=== PATIENT | male | born 1965 | race Caucasian/White ===

== ENCOUNTER 2021-01-14 08:12 | Observation (INO) | payer OTHER ==
[~2021-01-14] VITALS: Ht 175.3 cm; Wt 97.8 kg
--- NOTE | 2021-01-14 08:20 | NUR ---
PT AMBULATED TO ROOM WITH STEADY GAIT, ACCOMPANIED BY VISITOR.
[2021-01-14 09:13] LABS: HEMATOCRIT 42.7 % (39.0-50.0); HEMOGLOBIN 14.5 g/dl (14.0-18.0); IMMATURE GRANULOCYTES 0.4 % (0.0-5.0); MEAN CELL VOLUME 84.1 fL CALC (80.0-100.0); MEAN CORPUSCULAR HGB 28.5 pG CALC (26.0-32.0); NEUT# 13.01 thou/uL (1.82-7.42); RED BLOOD COUNT 5.08 mill/uL (4.70-6.10); RED CELL DISTRI WIDTH 15.1 % (11.5-15.5)
--- NOTE | 2021-01-14 09:20 | NUR ---
FRIEND AT BEDSIDE BROUGHT IN PATIENTS MEDICATIONS. MEDS RECONCILED AND ENTERED.
[2021-01-14 09:32] LABS: ACT PARTIAL THROMBO TIME 26.3 SECONDS (20.0-32.5); ALBUMIN 4.2 g/dL (3.2-5.0); ALKALINE PHOSPHATASE 84 u/l (38-126); ANION GAP 15 (6-22 (CALC)); BILIRUBIN, TOTAL 1.6 mg/dL (0.0-1.4); BUN 17 mg/dL (9-20); BUN/CREATININE RATIO 17 (12-20 (CALC)); CARBON DIOXIDE 26 mmol/l (22-30); CHLORIDE 95 mmol/l (95-108); GFR > 60 ML/MIN (>=60 (CALC)); GFR FOR AFR.AMER. > 60 ML/MIN (>=60 (CALC)); INTERNATIONAL NORMALIZED RATIO 1.1 RATIO (0.7-1.3); LIPASE 36 u/l (23-300); POTASSIUM 3.9 mmol/l (3.5-5.1); PROTHROMBIN TIME 10.8 SECONDS (9.0-12.5); SGOT/AST 23 u/l (17-59); SODIUM 132 mmol/l (137-146); TOTAL PROTEIN 8.3 g/dL (6.3-8.2)
--- NOTE | 2021-01-14 10:00 | NUR ---
PATEINT HAS BEEN ADVISED NOT TO TAKE METFORMIN FOR 2 DAYS DUE TO CONTRAST DYE. PATIENT VERBALIZES UNDERSTANDING.
[2021-01-14] MEDS ORDERED: HYDROCHLOROTHIA50 MG PO (10:28)
[2021-01-14] MEDS ORDERED: PLAVIX75 MG PO (10:28)
[2021-01-14] MEDS ORDERED: LISINOPRIL20 MG PO (10:29)
[2021-01-14] MEDS ORDERED: AMLODIPINE BESY10 MG PO (10:29)
[2021-01-14] MEDS ORDERED: METFORMIN500 M2 PO (10:30)
[2021-01-14] MEDS ORDERED: GABAPENTIN100 MG PO (10:30)
[2021-01-14] MEDS ORDERED: K-TAB20 MEQ PO (10:32)
[2021-01-14] MEDS ORDERED: LIPITOR20 M1 PO (10:36)
[2021-01-14] MEDS ORDERED: BAYER ASPIRIN E81 MG PO (10:37)
--- NOTE | 2021-01-14 11:26 | NUR ---
PATIENT RESTING, VANCO INFUSING WITHOUT DIFFICULTY. CONTINUING TO MONITOR.
[2021-01-14 12:03] LABS: URINE BILIRUBIN - DIPSTICK NEGATIVE (NEGATIVE); URINE BLOOD DIPSTICK MODERATE (NEGATIVE); URINE COLOR YELLOW; URINE GLUCOSE - DIPSTICK NEGATIVE (NEGATIVE); URINE KETONE NEGATIVE (NEGATIVE); URINE LEUK ESTERASE NEGATIVE (NEGATIVE); URINE PROTEIN - DIPSTICK NEGATIVE (NEG-TRACE); URINE SPECIFIC GRAVITY <=1.005; URINE UROBILINOGEN - DIPSTICK >=8.0 E.U./dL (0.2)
[2021-01-14 12:04] LABS: URINE NITRITE - DIPSTICK NEGATIVE (Negative)
--- NOTE | 2021-01-14 13:30 | NUR ---
PATIENT PROVIDED LUNCH TRAY. TOLERATED ALL.
--- NOTE | 2021-01-14 13:47 | NUR ---
REPORT RECEIVED FROM RAYMOND SALAZAR
--- NOTE | 2021-01-14 13:47 | NUR ---
REPORT CALLED TO BYRON AT THIS TIME. ALL QUESTIONS ANSWERED.
[2021-01-14 14:02] VITALS: BP 161/74
--- NOTE | 2021-01-14 14:03 | NUR ---
PT ARRIVED TO MED/SURG ROOM 263 IN STABLE CONDITION VIA WHEELCHAIR ACCOMPANIED BY RAYMOND SALAZAR;PT AMBULATED TO BEDSIDE WITH A STEADY GAIT;WT AND VS OBTAINED BY TATY SILVA;PT A&O X3, ORIENTED TO ROOM AND CALL LIGHT SYSTEM;PT REPORTS SUPERPUBIC ABSCESS X4 DAYS;PT REPORTS PAIN TO SITE RATING 8/10 ON THE PAIN SCALE, MD TO BE NOTIFIED OF PAIN;RESPIRATIONS EVEN AND UNLABORED ON RA,CLEAR LUNG SOUNDS;ABDOMEN SOFT ON PALPATION AND ACTIVE IN ALL 4 QUADRANTS,LAST BM 01/14/21;ABSCESS TO SUPERPUBIC REGION RED WITH DARK BLACK CENTER, WASTEWATER MANAGER AND PHOTO PLACED IN CHART;STRONG PEDAL PULSES;#20G TO RAC FLUSHED AND PATENT,SITE APPEARS HEALTHY AND NS TO BE STARTED @75ML/HR PER ORDER;ACCUCHECK 136;FALL AND ALLERGY BAND APPLIED;PT DENIES ANY ADDITIONAL NEEDS AND IS ENCOURAGED TO CALL FOR ASSISTANCE IF NEEDED;FALL PRECAUTIONS IN PLACE WITH BED IN THE LOWEST POSITION AND CALL LIGHT IN REACH;WILL CONTINUE TO MONITOR
--- NOTE | 2021-01-14 14:45 | NUR ---
NOTIFIED OF PT REPORTS OF PAIN, AWAITING NEW ORDERS.
[2021-01-14 14:50] VITALS: BP 131/70
--- NOTE | 2021-01-14 14:55 | NUR ---
S: FARRUKH LORENZO is a 55 M who presents with Abdominal cellulitis. He has a history of abdominal cellulitis. All medications in patient's chart were reviewed. O: VS:T 99.7 W 104kg, Scr=1.0,CrCl= 96ml/min> A: Blood culture <is pending P: Patient is on zosyn 3.375g q6h. Vancomycin ordered for pharmacy to dose. Start Vancomycin 1250mg IV Q8H. Vancomycin trough is drawn before the 4th dose on 01/15/21 @0930. Vancomycin goal trough is between <10-20 mcg/ml>. Pharmacy will follow and or advise on antibiotics use as needed. WINIFRED BOURGEOIS PHARMD
--- NOTE | 2021-01-14 15:45 | NUR ---
PT RESTING IN SEMI FOWLERS POSITION WATCHING TV;RESPIRATIONS EVEN AND UNLABORED ON RA;IV FLUIDS STARTED AND INFUSING @ 75ML/HR PER ORDER;PT DENIES ANY ADDITIONAL NEEDS;ENCOURAGED TO CALL FOR ASSISTANCE IF NEEDED;CALL LIGHT IN REACH;WILL CONTINUE TO MONITOR
--- NOTE | 2021-01-14 17:44 | NUR ---
WARM COMPRESSES APPLIED TO ABSCESS;PT ALSO MEDICATED WITH PRN TORADOL FOR LOWER BACK PAIN AT THIS TIME,WILL CONTINUE TO MONITOR FOR EFFECTIVENESS.
--- NOTE | 2021-01-14 19:00 | NUR ---
REPORT RECEIVED FROM Trisha MCDONOUGH LPN, CARE OF PT ASSUMED AT THIS TIME.
[2021-01-14 20:00] VITALS: BP 110/69
--- NOTE | 2021-01-14 20:49 | NUR ---
PHYSICAL ASSESMENT COMPLETE, SEE SHIFT ASSESMENT. PUBIC MOUND INDURATED, EDEMATOUS AND ERYTHEMATOUS. SEE PHOTO DOCUMENTATION IN CHART. NO ACTIVE DRAINAGE OBSERVED FROM AREA. SEROUSANGUINOUS DRAINAGE NOTED TO SHEET AND GOWN. ABD PAD PLACED OVER AREA TO WICK ANY DRAIANGE. PARTIAL LINENE CHANGE COMPLETED. SCHEDULED MEDICATIONS ADMINISTERED AND PRN SONATA ADMINISTERED REQUESTED BY PT FOR SLEEP. SEE E-MAR. R-AC #20G PATENT AND INFUSING NS @75ML/H. PLAN OF CARE REVIEWED, PT VERBALIZES UNDERSTANDING. PT DENIES ANY NEEDS AT THIS TIME. CALL PICKARD WITHIN REACH. AGREES TO CALL PRN.
--- NOTE | 2021-01-15 00:50 | NUR ---
PT APPEARS TO BE SLEEPING COMFORTABLY. LAYING IN BED WITH EYES CLOSED, GENTLY SNORING, RESPIRATIONS REGULAR AND UNLABORED. NO APPARENT DISTRESS. CALL PICKARD REMAINS WITHIN REACH.
[2021-01-15 04:00] VITALS: BP 120/73
--- NOTE | 2021-01-15 04:20 | NUR ---
Aris BENOIT, DIRECTOR COUNSELING BUREAU IN ROOM COLLECTING AM LAB WORK.
[2021-01-15 05:51] LABS: HEMATOCRIT 37.6 % (39.0-50.0); HEMOGLOBIN 12.6 g/dl (14.0-18.0); MEAN CELL VOLUME 85.8 fL CALC (80.0-100.0); MEAN CORPUSCULAR HGB 28.8 pG CALC (26.0-32.0); MEAN CORPUSCULAR HGB CONC 33.5 g/dL CAL (32.0-36.0); RED BLOOD COUNT 4.38 mill/uL (4.70-6.10); RED CELL DISTRI WIDTH 15.1 % (11.5-15.5)
[2021-01-15 05:58] LABS: ANION GAP 13 (6-22 (CALC)); BUN 18 mg/dL (9-20); BUN/CREATININE RATIO 19 (12-20 (CALC)); CARBON DIOXIDE 27 mmol/l (22-30); CHLORIDE 99 mmol/l (95-108); GFR > 60 ML/MIN (>=60 (CALC)); GFR FOR AFR.AMER. > 60 ML/MIN (>=60 (CALC)); MAGNESIUM 1.9 mg/dL (1.6-2.3); POTASSIUM 4.1 mmol/l (3.5-5.1); SODIUM 135 mmol/l (137-146)
--- NOTE | 2021-01-15 07:05 | NUR ---
REPORT RECEIVED FROM RAYMOND TAN
--- NOTE | 2021-01-15 08:25 | NUR ---
PT RESTING IN SEMI FOWLERS POSITION,A&O X3;VS OBTAINED AND ASSESSMENT COMPLETED;PT REPORTS LOWER BACK PAIN RATING 8/10 ON THE PAIN SCALE,PT TO BE MEDICATED WITH PRN TORADOL 15MG IVP;RESPIRATIONS EVEN AND UNLABORED ON RA,CLEAR LUNG SOUNDS;ABDOMEN SOFT ON PALPATION AND ACTIVE IN ALL 4 QUADRANTS;ABSCESS TO SUPERPUBIC REGION NOTED AND WARM COMPRESS APPLIED;STRONG PEDAL PULSES;#20G TO RAC INFUSING NS @ 75ML/HR,SITE APPEARS HEALTHY;ACCUCHECK 153;PT DENIES ANY ADDITIONAL NEEDS AND IS ENCOURAGED TO CALL FOR ASSISTANCE IF NEEDED;FALL PRECAUTIONS IN PLACE WITH BED IN THE LOWEST POSITION AND CALL LIGHT IN REACH;WILL CONTINUE TO MONITOR
[2021-01-15 08:28] VITALS: BP 133/79
--- NOTE | 2021-01-15 10:18 | NUR ---
AT BEDSIDE DISCUSSING POC.
--- NOTE | 2021-01-15 11:20 | NUR ---
PT RESTING IN SEMI FOWLERS POSITION;RESPIRATIONS EVEN AND UNLABORED ON RA;PT DENIES ANY CURRENT PAIN OR DISCOMFORTS;IV SITE INFUSING WITH EASE TO RAC AND ABX STARTED PER ORDER;PT ENCOURAGED TO CALL FOR ASSISTANCE IF NEEDED;CALL LIGHT IN REACH;WILL CONTINUE TO MONITOR
--- NOTE | 2021-01-15 14:18 | NUR ---
VANCO TROUGH IS 12 CONTINUE VANCOMYCIN 1250MG Q8H NEXT TROUGH WILL BE 01/16/21 @0037
[2021-01-15 14:35] VITALS: BP 142/70
--- NOTE | 2021-01-15 15:30 | NUR ---
PT RESTING IN SEMI FOWLERS POSITION;RESPIRATIONS EVEN AND UNLABORED ON RA;PT DENIES ANY CURRENT PAIN OR DISCOMFORTS;PT REPORTS THAT DURING A SHOWER HE CHIPPED HIS LEFT GREAT TOE TOENAIL, SITE CLOSED. DRESSING APPLIED PER REQUEST;IV FLUIDS INFUSING WELL TO RAC;PT DENIES ANY ADDITIONAL NEEDS;ENCOURAGED TO CALL FOR ASSISTANCE IF NEEDED;FALL PRECAUTIONS IN PLACE WITH CALL LIGHT IN REACH;WILL CONTINUE TO MONITOR
--- NOTE | 2021-01-15 19:02 | NUR ---
REPORT FROM BYRON CALDERON. ASSUMED PT CARE.
[2021-01-15 19:07] VITALS: BP 123/72
--- NOTE | 2021-01-15 21:39 | NUR ---
PT NOTED SITTING UP IN BED WATCHING TV. NO APPARENT DISTRESS NOTED. PT ALERT AND ORIENTED X3. RESPIRATIONS EVEN AND UNLABORED. IV SITE APPEARS HEALTHY WITH IVF INFUSING. MEDICATED ORDERED. SLEEPING PILL PROVIDED UPON REQUEST. PT DENIES ANY CURRENT WANTS OR NEEDS. PT C/O LOWER BACK AND SUPRAPUBIC PAIN, MEDICATED WITH PRN TORADOL. OPEN WOUND TO SUPRAPUBIC AREA SURROUNDING AREA RED, WARM TO TOUCH WITH TRACE EDEMA NOTED, ABD PAD APPLIED FOR SMALL AMOUNT OF PURULENT DRAINAGE. CALL LIGHT WITHIN REACH. WILL CONTINUE TO MONITOR.
--- NOTE | 2021-01-16 01:33 | NUR ---
PT RESTING IN BED WITH EYES CLOSED. NO APPARENT DISTRESS NOTED. RESPIRATIONS EVEN AND UNLABORED. CALL LIGHT WITHIN REACH. WILL CONTINUE TO MONITOR.
[2021-01-16 04:00] VITALS: BP 117/64
--- NOTE | 2021-01-16 04:25 | NUR ---
JEWELRY REPAIRER IN ROOM TO OBTAIN LABS AT THIS TIME.
[2021-01-16 06:17] LABS: HEMOGLOBIN 11.9 g/dl (14.0-18.0); MEAN CELL VOLUME 87.2 fL CALC (80.0-100.0); MEAN CORPUSCULAR HGB 28.8 pG CALC (26.0-32.0); MEAN CORPUSCULAR HGB CONC 33.1 g/dL CAL (32.0-36.0); RED BLOOD COUNT 4.13 mill/uL (4.70-6.10); RED CELL DISTRI WIDTH 14.8 % (11.5-15.5)
[2021-01-16 06:25] LABS: BUN 16 mg/dL (9-20); BUN/CREATININE RATIO 16 (12-20 (CALC)); CARBON DIOXIDE 27 mmol/l (22-30); CHLORIDE 104 mmol/l (95-108); GFR > 60 ML/MIN (>=60 (CALC)); GFR FOR AFR.AMER. > 60 ML/MIN (>=60 (CALC)); SODIUM 138 mmol/l (137-146)
[2021-01-16 06:31] LABS: ANION GAP 7 (6-22 (CALC))
--- NOTE | 2021-01-16 07:00 | NUR ---
PT REPORT RECEIVED FROM NIGHT NURSESRIDHAR
[2021-01-16 07:42] VITALS: BP 132/77
--- NOTE | 2021-01-16 08:00 | NUR ---
PT WAS FOUND RESTING IN BED IN SEMI-HUFF'S POSITION;PT IS A&OX3;VS AND ASSESSMENT WERE COMPLETED;PT HAS NO REPORTS OF PAIN AT THIS TIME;HEART SOUNDS ARE REGULAR IN RATE AND RHYTHM;LUNG SOUNDS ARE CLEAR;RESPIRATIONS ARE EVEN AND UNLABORED ON RA;#20G IV IN RAC WAS FOUND PARTIALLY DISLODGED;NEW IV STARTED,#22G IV IN IS RUNNING NS@75ML/HR;IV SITE IS PATENT AND APPEARS FREE OF COMPLICATIONS AT THIS TIME;PT HAS A SUPRAPUBIC ABSCESS PRESENT THAT IS OPEN AND DRAINING AT THIS TIME;SUPRAPUBIC AREA IS REDDENED,SWOLLEN AND VERY FIRM TO THE TOUCH;PHYSICIAN AWARE;SAFETY PRECAUTIONS IN PLACE;CALL LIGHT WITHIN REACH;PT ENCOURAGED TO CALL WITH ANY NEEDS OR CONCERNS;WILL CONTINUE TO MONITOR.
--- NOTE | 2021-01-16 12:00 | NUR ---
PT WAS FOUND RESTING IN BED EATING LUNCH;PT DENIES ANY PAIN OR NEEDS AT THIS TIME;SAFETY PRECAUTIONS IN PLACE;IV ABX INFUSING AT THIS TIME;CALL LIGHT WITHIN REACH;WILL CONTINUE TO MONITOR.
--- NOTE | 2021-01-16 12:46 | NUR ---
S: FARRUKH LORENZO is a 55 M who presents with Cellulitis. He has a history of Diabetes, Heart Disease and Hypertension. All medications in patient's chart were reviewed. O: VS: BP 132/77 mmHg , P 77 rbm , RR 18 bpm ,T 97.1F W 97.806 kg, HT 69inch, Scr=1.0 mg/dL ,CrCl= 81.5 ml/min A: Blood culture is pending. P: Patient is on Zosyn . Vancomycin ordered for pharmacy to dose. trough is 17 Start Vancomycin 1250mg IV Q12H. Vancomycin trough is drawn before the 4th dose on january 17 at 2130. Vancomycin goal trough is between 10-20 mcg/ml. Pharmacy will follow and or advise on antibiotics use as needed.
[2021-01-16 15:00] VITALS: BP 131/84
--- NOTE | 2021-01-16 16:00 | NUR ---
PT WAS FOUND RESTING IN BED;PT HAS VISITOR AT BEDSIDE;#22G IV IN IS RUNNING NS@75ML/HR;IV SITE IS PATENT AND APPEARS FREE OF COMPLICATIONS AT THIS TIME;SAFETY PRECAUTIONS IN PLACE;CALL LIGHT WITHIN REACH;WILL CONTINUE TO MONITOR.
[2021-01-16 18:54] VITALS: BP 140/75
--- NOTE | 2021-01-16 20:00 | NUR ---
RECEIVED REPORT FROM NURSE MILLER PATIENT RESTING IN BED, TALKING ON THE PHONE WITH ONGOING IV NS @ 75CC/HR INFUSING WELL ON LEFT HAND ACTIVE BOWEL SOUNDS LBM 01/16, BREATHING EVEN UNLABORED, WITH WOUND ON SUPRAPUBIC AREA WITH SMALL PURULENT DRAINAGE, C/O PAIN PS 3/10, TOLERABLE REFUSED PAIN MEDS AT THIS TIME, CALL LIGHT AT REACH.
--- NOTE | 2021-01-17 00:03 | NUR ---
PATIENT RESTING IN BED WITH EYES CLOSED, BREATHING EVEN UNLABORED, CALL LIGHT AT REACH.
[2021-01-17 03:47] VITALS: BP 144/84
--- NOTE | 2021-01-17 04:30 | NUR ---
PATIENT SITTING IN BED AWAKE, NO DISCOMFORTS NOTED AT THIS TIME, BREATHING EVEN UNLABORED CALL LIGHT AT REACH.
[2021-01-17 05:32] LABS: HEMATOCRIT 37.4 % (39.0-50.0); HEMOGLOBIN 12.4 g/dl (14.0-18.0); MEAN CELL VOLUME 86.2 fL CALC (80.0-100.0); MEAN CORPUSCULAR HGB 28.6 pG CALC (26.0-32.0); MEAN CORPUSCULAR HGB CONC 33.2 g/dL CAL (32.0-36.0); RED BLOOD COUNT 4.34 mill/uL (4.70-6.10); RED CELL DISTRI WIDTH 14.5 % (11.5-15.5)
[2021-01-17 05:41] LABS: ANION GAP 13 (6-22 (CALC)); BUN 12 mg/dL (9-20); BUN/CREATININE RATIO 13 (12-20 (CALC)); CARBON DIOXIDE 27 mmol/l (22-30); CHLORIDE 103 mmol/l (95-108); GFR > 60 ML/MIN (>=60 (CALC)); GFR FOR AFR.AMER. > 60 ML/MIN (>=60 (CALC)); POTASSIUM 4.2 mmol/l (3.5-5.1); SODIUM 138 mmol/l (137-146)
--- NOTE | 2021-01-17 07:00 | NUR ---
PT REPORT RECEIVED FROM NIGHT NURSEMANDA
--- NOTE | 2021-01-17 08:00 | NUR ---
PT WAS FOUND RESTING IN BED;PT IS A&OX3;VS AND ASSESSMENT WERE COMPLETED;PT HAS NO REPORTS OF PAIN AT THIS TIME;HEART SOUNDS ARE REGULAR IN RATE AND RHYTHM;LUNG SOUNDS ARE CLEAR;RESPIRATIONS ARE EVEN AND UNLABORED ON RA;BOWEL SOUNDS ARE ACTIVE IN ALL QUADRANTS;PT HAS A SUPRAPUBIC ABSCESS PRESENT THAT IS OPEN AND DRAINING AT THIS TIME;SUPRAPUBIC REGION IS REDDENED,SWOLLEN WITH SOME WARMTH PRESENT;#22G IV IN IS RUNNING NS@75ML/HR;IV SITE APPEARS FREE OF COMPLICATIONS AT THIS TIME;SAFETY PRECAUTIONS IN PLACE;CALL LIGHT WITHIN REACH;WILL CONTINUE TO MONITOR.
[2021-01-17 08:30] VITALS: BP 148/83
--- NOTE | 2021-01-17 08:40 | NUR ---
AND JOSE HENDERSON AT BEDSIDE DISCUSSING POC WITH PT
--- NOTE | 2021-01-17 12:00 | NUR ---
PT WAS FOUND RESTING IN BED IN SEMI-HUFF'S POSITION;PT HAD JUST FINISHED EATING LUNCH;SAFETY PRECAUTIONS IN PLACE;CALL LIGHT WITHIN REACH;WILL CONTINUE TO MONITOR
[2021-01-17 14:44] VITALS: BP 111/64
[2021-01-17 18:37] VITALS: BP 126/78
--- NOTE | 2021-01-17 19:00 | NUR ---
RECEIVED REPORT FROM NURSE MILLER, PATEINT RESTING IN BED WATCHING TV, ASSUMED CARE, CALL LIGHT AT REACH.
--- NOTE | 2021-01-17 20:30 | NUR ---
PATIENT ALERT ORINETED ABLE TO MAKE NEEDS KNONW, WITH ONGOING IV ON NS @ 20CC/HR INFUSING WELL ON LEFT HAND, LUNG SOUNDS CLEAR. BREATHING EVEN UNLABORED, ACTIVE BOWEL SOUNDS, LBM 01/17, DENIES PAIN AT THIS TIME, SUPRAPUBIC AREA MILD REDNESS NOTED ABSCESS DRAINING SCANT AMOUNT OF PURULENT DRAINANGE, WILL CONTINUE TO MONITOR, CALL LIGHT AT REACH.
--- NOTE | 2021-01-17 21:25 | NUR ---
TECH IN ROOM TO OBTAIN [facility] TROUGH.
--- NOTE | 2021-01-17 22:05 | NUR ---
VANCO TROUGH 11, DUE VANCOMYCIN GIVEN.
--- NOTE | 2021-01-18 00:34 | NUR ---
DUE ZOSYN GIVEN AT THIS TIME, PATIENT RESTING WITH EYES CLOSED, EASY TO AWAKEN, NO DISCOMFORTS NOTED AT THIOS TIME, CALL LIGHT AT REACH.
[2021-01-18 04:00] VITALS: BP 143/87
--- NOTE | 2021-01-18 04:10 | NUR ---
P[ATIENT RESTING IN BED, NO DISCOMFORTS NOTED AT THIS TIME, BREATHING EVEN UNLABORED CALL LIGHT AT REACH.
[2021-01-18 05:31] LABS: HEMATOCRIT 37.8 % (39.0-50.0); HEMOGLOBIN 12.8 g/dl (14.0-18.0); MEAN CELL VOLUME 85.1 fL CALC (80.0-100.0); MEAN CORPUSCULAR HGB 28.8 pG CALC (26.0-32.0); MEAN CORPUSCULAR HGB CONC 33.9 g/dL CAL (32.0-36.0); RED BLOOD COUNT 4.44 mill/uL (4.70-6.10); RED CELL DISTRI WIDTH 14.5 % (11.5-15.5)
[2021-01-18 05:33] LABS: ANION GAP 13 (6-22 (CALC)); BUN 12 mg/dL (9-20); BUN/CREATININE RATIO 13 (12-20 (CALC)); CARBON DIOXIDE 27 mmol/l (22-30); CHLORIDE 101 mmol/l (95-108); GFR > 60 ML/MIN (>=60 (CALC)); GFR FOR AFR.AMER. > 60 ML/MIN (>=60 (CALC)); POTASSIUM 4.3 mmol/l (3.5-5.1); SODIUM 137 mmol/l (137-146)
--- NOTE | 2021-01-18 07:00 | NUR ---
PT REPORT RECEIVED FROM NIGHT NURSEMANDA
--- NOTE | 2021-01-18 07:28 | NUR ---
WOUND CULTURE SHOWS MRSA, PATIENT PUT ON CONTACT ISOLATION.
--- NOTE | 2021-01-18 08:00 | NUR ---
PT WAS FOUND RESTING IN BED IN SEMI-HUFF'S POSITION;PT IS A&OX3;VS AND ASSESSMENT WERE COMPLETED;PT IS REPORTING NO PAIN AT THIS TIME;HEART SOUNDS ARE REGULAR IN RATE AND RHYTHM;LUNG SOUNDS ARE CLEAR;RESPIRATIONS ARE EVEN AND UNLABORED ON RA;#22G IV IN IS RUNNING NS@20ML/HR;IV SITE APPEARS FREE OF COMPLICATIONS AT THIS TIME;;BOWEL SOUNDS ARE ACTIVE IN ALL QUADRANTS;PT HAS A SUPRAPUBIC ABSCESS PRESENT THAT IS OPEN AND DRAINING A SMALL AMOUNT OF PURULENT DRAINAGE;SUPRAPUBIC REGION IS SLIGHTLY REDDENED;SAFETY PRECAUTIONS IN PLACE;CALL LIGHT WITHIN REACH;PT ENCOURAGED TO CALL WITH ANY NEEDS OR CONCERNS;WILL CONTINUE TO MONITOR.
[2021-01-18 08:18] VITALS: BP 136/88
[2021-01-18 09:03] VITALS: BP 136/88
--- NOTE | 2021-01-18 09:20 | NUR ---
AND JOSE HENDERSON AT BEDSIDE DISCUSSING POC WITH PT.
--- NOTE | 2021-01-18 09:33 | NUR ---
S: FARRUKH LORENZO is a 55 M who presents with cellulitis of suprapubic region. He has a history of Diabetes, Heart disease, and Hypertension. All medications in patient's chart were reviewed. O: Vancomycin Trough level is reported as 11 ug/mL. VS: BP 136/88 mmHg, P 71 bpm, RR 18 bpm, T 97.1 F W 97.8 kg, HT 69 in, Scr= 1 mg/dL, CrCl= 112.7 mL/min Preliminary Blood cultures shows no growth. 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 A: Vanco trough is therapeutic. P: Keep dose as is. Patient is on Zosyn 3.375g Q6H IV. Vancomycin ordered for pharmacy to dose. Continue Vancomycin 1250 mg IV Q12H. Vancomycin trough is drawn prior to the dose on 01/19 at 0930. Vancomycin goal trough is between 10-15 mcg/ml. Pharmacy will follow and or advise on antibiotics use as needed.
[2021-01-18] MEDS ORDERED: BACTRIM DS1 TAB PO (10:33)
--- NOTE | 2021-01-18 12:12 | NUR ---
Discharge instructions given. Patient verbalizes understanding of same. Discharged in stable condition via Wheelchair to Home with spouse. All belongings sent with pt. DISCHARGE PACKET WAS GIVEN TO PT;DC INSTRUCTIONS AND MEDICATIONS WERE EXPLAINED TO PT;PT EXPRESSED UNDERSTANDING AND HAD NO FURTHER QUESTIONS FOR ME;SIGNATURE WAS OBTAINED;PICTURE WAS OBTAINED OF WOUND AND PLACED IN CHART;IV WAS REMOVED WITH NO COMPLICATIONS AND CATHETER INTACT;PT WILL BE DISCHARGED HOME WITH SPOUSE, PT WAS TRANSPORTED IN STABLE CONDITION TO [facility] VIA WC ACCOMPANIED BY STAFF;ALL PT BELONGINGS WERE SENT WITH PT;PT WILL BE TRANSPORTED HOME WITH SPOUSE.
== END 2021-01-18 12:12 | disposition home or self-care (01) ==
LOC: ED 08:12 → ED-I 10:40 → ED 10:47 → MS2 10:48
PROVIDERS: Nurse Practitioner; ADMIT Internal Medicine; ATTEND Internal Medicine
DX: L03.311 Cellulitis of abdominal wall (principal); I10 Essential (primary) hypertension; E11.40 Type 2 diabetes mellitus with diabetic neuropathy, unspecified; I25.10 Atherosclerotic heart disease of native coronary artery without angina pectoris; E87.1 Hypo-osmolality and hyponatremia; E78.5 Hyperlipidemia, unspecified; E66.9 Obesity, unspecified; F17.200 Nicotine dependence, unspecified, uncomplicated; B95.62 Methicillin resistant Staphylococcus aureus infection as the cause of diseases classified elsewhere; Z95.1 Presence of aortocoronary bypass graft; Z79.84 Long term (current) use of oral hypoglycemic drugs; Z68.31 Body mass index [BMI] 31.0-31.9, adult; Z20.822 Contact with and (suspected) exposure to COVID-19
CPT/HCPCS: G0378; J3370; Q9967

== ENCOUNTER 2023-08-08 14:04 | Observation (INO) | payer SELFPAY ==
[2023-08-08] VITALS (14 sets, daily range): BP systolic 129–166; BP diastolic 75–98
[~2023-08-08] VITALS: Ht 175.3 cm; Wt 106.2 kg
[~2023-08-08 14:04] MED LIST: AMLODIPINE BESY10 MG PO; BACTRIM DS1 TAB PO; BAYER ASPIRIN E81 MG PO; GABAPENTIN100 MG PO; HYDROCHLOROTHIA50 MG PO; K-TAB20 MEQ PO; LIPITOR20 M1 PO; LISINOPRIL20 MG PO; METFORMIN500 M2 PO; PLAVIX75 MG PO
[2023-08-08 15:47] LABS: BASO% 0.7 % (0-3); EOS% 3.6 % (0-8); IMMATURE GRANULOCYTES 0.2 % (0.0-5.0); LYMPH% 25.2 % (15-41); MEAN CELL VOLUME 87.7 fL CALC (80.0-100.0); MEAN CORPUSCULAR HGB CONC 34.2 g/dL CAL (32.0-36.0); MONO% 7.7 % (2-13); NEUT# 5.14 thou/uL (1.82-7.42); NEUT% 62.6 % (42-76); RED BLOOD COUNT 5.67 mill/uL (4.70-6.10); RED CELL DISTRI WIDTH 13.9 % (11.5-15.5)
[2023-08-08 15:48] LABS: HEMATOCRIT 49.7 % (39.0-50.0)
[2023-08-08 16:01] LABS: ALBUMIN 4.9 g/dL (3.2-5.0); ALKALINE PHOSPHATASE 78 u/l (38-126); BUN 23 mg/dL (9-20); BUN/CREATININE RATIO 22 (12-20 (CALC)); CARBON DIOXIDE 29 mmol/l (22-30); CHLORIDE 106 mmol/l (95-108); GFR FOR AFR.AMER. > 60 ML/MIN (>=60 (CALC)); GFR OTHER RACES > 60 ML/MIN (>=60 (CALC)); POTASSIUM 4.3 mmol/l (3.5-5.1); SGOT/AST 34 u/l (17-59); TOTAL PROTEIN 8.1 g/dL (6.3-8.2)
[2023-08-08 16:03] LABS: ANION GAP 13 (6-22 (CALC)); BILIRUBIN, TOTAL 0.6 mg/dL (0.2-1.3); SODIUM 144 mmol/l (137-146)
[2023-08-08] MEDS ORDERED: CILOSTAZOL100 MG PO (17:20)
[2023-08-08] MEDS ORDERED: FLUOCINOLONE A0.012 OT (17:23)
[2023-08-08] MEDS ORDERED: ISOSORB MONO30 MG PO (17:24)
[2023-08-08] MEDS ORDERED: JARDIANCE25 MG (17:25)
[2023-08-09 00:18] VITALS: BP 108/61
[2023-08-09 04:07] VITALS: BP 125/71
[2023-08-09 04:39] LABS: BASO% 0.9 % (0-3); EOS% 4.8 % (0-8); HEMOGLOBIN 15.6 g/dl (14.0-18.0); IMMATURE GRANULOCYTES 0.3 % (0.0-5.0); LYMPH% 30.2 % (15-41); MEAN CELL VOLUME 88.5 fL CALC (80.0-100.0); MEAN CORPUSCULAR HGB CONC 33.9 g/dL CAL (32.0-36.0); MONO% 9.7 % (2-13); NEUT# 4.32 thou/uL (1.82-7.42); NEUT% 54.1 % (42-76); RED BLOOD COUNT 5.2 mill/uL (4.70-6.10)
[2023-08-09 05:05] LABS: ANION GAP 13 (6-22 (CALC)); BUN 28 mg/dL (9-20); BUN/CREATININE RATIO 27 (12-20 (CALC)); CARBON DIOXIDE 26 mmol/l (22-30); CHLORIDE 106 mmol/l (95-108); CREATININE 1.1 mg/dL (0.7-1.3); GFR FOR AFR.AMER. > 60 ML/MIN (>=60 (CALC)); GFR OTHER RACES > 60 ML/MIN (>=60 (CALC)); MAGNESIUM 1.8 mg/dL (1.6-2.3); SODIUM 141 mmol/l (137-146)
[2023-08-09 09:10] VITALS: BP 122/88
[2023-08-09 17:41] VITALS: BP 121/69
[2023-08-09 19:21] VITALS: BP 100/52
[2023-08-09 22:46] VITALS: BP 102/64
[2023-08-10 03:30] VITALS: BP 106/70
[2023-08-10 05:55] LABS: BASO% 0.9 % (0-3); HEMATOCRIT 47.3 % (39.0-50.0); HEMOGLOBIN 16.1 g/dl (14.0-18.0); IMMATURE GRANULOCYTES 0.3 % (0.0-5.0); LYMPH% 29.4 % (15-41); MEAN CELL VOLUME 87.8 fL CALC (80.0-100.0); MEAN CORPUSCULAR HGB 29.9 pG CALC (26.0-32.0); MONO% 10.3 % (2-13); NEUT# 4.07 thou/uL (1.82-7.42); NEUT% 54.1 % (42-76); RED BLOOD COUNT 5.39 mill/uL (4.70-6.10); RED CELL DISTRI WIDTH 13.9 % (11.5-15.5)
[2023-08-10 06:27] LABS: ANION GAP 11 (6-22 (CALC)); BUN 31 mg/dL (9-20); BUN/CREATININE RATIO 26 (12-20 (CALC)); CARBON DIOXIDE 28 mmol/l (22-30); CHLORIDE 105 mmol/l (95-108); CREATININE 1.2 mg/dL (0.7-1.3); GFR FOR AFR.AMER. > 60 ML/MIN (>=60 (CALC)); GFR OTHER RACES > 60 ML/MIN (>=60 (CALC)); POTASSIUM 4.8 mmol/l (3.5-5.1); SODIUM 139 mmol/l (137-146)
[2023-08-10 08:48] VITALS: BP 118/89
[2023-08-10] MEDS ORDERED: CILOSTAZOL100 MG PO (11:17)
[2023-08-10] MEDS ORDERED: PLAVIX75 MG PO (11:17)
[2023-08-10] MEDS ORDERED: LASIX 20 MG TAB20 MG PO (11:21)
[2023-08-10 11:45] VITALS: BP 107/71
[2023-08-10] MEDS ORDERED: JARDIANCE25 MG PO (11:48)
[2023-08-10] MEDS ORDERED: K-TAB20 MEQ PO (11:48)
[2023-08-10] MEDS ORDERED: FLUOCINOLONE A0.012 OT (11:48)
[2023-08-10] MEDS ORDERED: AMLODIPINE BESY10 MG PO (11:48)
[2023-08-10] MEDS ORDERED: ISOSORB MONO30 MG PO (11:48)
[2023-08-10] MEDS ORDERED: GABAPENTIN100 MG PO (11:48)
[2023-08-10] MEDS ORDERED: LISINOPRIL10 MG PO (11:48)
[2023-08-10] MEDS ORDERED: BAYER ASPIRIN E81 MG PO (11:48)
[2023-08-10] MEDS ORDERED: METFORMIN500 M2 PO (11:48)
[2023-08-10] MEDS ORDERED: LIPITOR20 M1 PO (11:48)
== END 2023-08-10 13:06 | disposition home or self-care (01) | DRG 313 ==
LOC: ED 14:04 → ED-I 16:31 → ED 16:31 → MS2 20:08
PROVIDERS: Family Medicine; ADMIT Student in an Organized Health Care Education/Training Program; ATTEND Student in an Organized Health Care Education/Training Program
DX: R07.89 Other chest pain (principal); I11.0 Hypertensive heart disease with heart failure; I50.9 Heart failure, unspecified; I25.10 Atherosclerotic heart disease of native coronary artery without angina pectoris; E11.40 Type 2 diabetes mellitus with diabetic neuropathy, unspecified; E78.5 Hyperlipidemia, unspecified; I45.10 Unspecified right bundle-branch block; F17.290 Nicotine dependence, other tobacco product, uncomplicated; F17.210 Nicotine dependence, cigarettes, uncomplicated; Z95.1 Presence of aortocoronary bypass graft; T50.916A Underdosing of multiple unspecified drugs, medicaments and biological substances, initial encounter; Z91.128 Patient's intentional underdosing of medication regimen for other reason; Z79.84 Long term (current) use of oral hypoglycemic drugs
CPT/HCPCS: G0378; J1650

== ENCOUNTER 2024-03-17 07:36 | Observation (INO) | payer SELFPAY ==
[~2024-03-17] VITALS: Ht 175.3 cm; Wt 112.0 kg
[2024-03-17] VITALS (26 sets, daily range): BP systolic 115–200; BP diastolic 73–117
[~2024-03-17 07:36] MED LIST changes: +ASPIRINCHW 81MG PO; +ATORVASTATIN CA40 MG PO; +CILOSTAZOL100 MG PO; +FLUOCINOLONE A0.012 OT; +GLUCOTROL XL5 MG PO; +HYDROCHLOROTH12.5 MG PO; +HYDROCORT AC2.5% TOP; +ISOSORB MONO30 MG PO; +ISOSORBIDE MONO60 MG PO; +JARDIANCE25 MG; +JARDIANCE25 MG PO; +KETOCONAZOLE21 EX; +KLOR-CON M2020 MEQ PO; +LASIX 20 MG TAB20 MG PO; +LASIX40 MG PO; +LISINOPRIL10 MG PO; +LISINOPRIL20 M1 PO; +LOPRESSOR25 MG PO; +MUPIROCIN2 % EX; +NEURONTIN600 MG PO; +NITROSTAT0.4 MG SL
[2024-03-17] MEDS ORDERED: ASPIRIN 81 MG/TAB PO ONE (07:40)
[2024-03-17] MEDS ORDERED: NITROGLYCERIN 0.4 MG/TAB SL ONE (07:50)
[2024-03-17 08:13] LABS: EOS% 4.7 % (0-8); HEMATOCRIT 47.4 % (39.0-50.0); HEMOGLOBIN 16.8 g/dl (14.0-18.0); IMMATURE GRANULOCYTES 0.3 % (0.0-5.0); LYMPH% 32.6 % (15-41); MEAN CELL VOLUME 89.1 fL CALC (80.0-100.0); MEAN CORPUSCULAR HGB 31.6 pG CALC (26.0-32.0); MEAN CORPUSCULAR HGB CONC 35.4 g/dL CAL (32.0-36.0); MONO% 8.8 % (2-13); NEUT# 3.22 thou/uL (1.82-7.42); NEUT% 52.6 % (42-76); RED BLOOD COUNT 5.32 mill/uL (4.70-6.10); RED CELL DISTRI WIDTH 13.2 % (11.5-15.5)
[2024-03-17] MEDS ORDERED: ONDANSETRON HCl 4 MG/2 ML SDV IV ONE (08:25)
[2024-03-17] MEDS ORDERED: MORPHINE SULFATE 4 MG/ML VIAL IV ONE (08:25)
[2024-03-17 08:38] LABS: ALBUMIN 4.3 g/dL (3.2-5.0); ALKALINE PHOSPHATASE 62 u/l (38-126); ANION GAP 9 (6-22 (CALC)); BILIRUBIN, TOTAL 0.6 mg/dL (0.2-1.3); BUN 11 mg/dL (8-23); BUN/CREATININE RATIO 13 (12-20 (CALC)); CARBON DIOXIDE 26 mmol/l (22-30); CHLORIDE 106 mmol/l (95-108); CREATININE 0.9 mg/dL (0.7-1.3); ESTIMATED GFR 97 ML/MIN (>=90 (CALC)); POTASSIUM 3.7 mmol/l (3.5-5.1); SGOT/AST 48 u/l (19-48); SODIUM 138 mmol/l (137-146); TOTAL PROTEIN 7.7 g/dL (6.3-8.2)
[2024-03-17] MEDS ORDERED: MAGNESIUM HYDROXIDE 30 ML UDC PO PRN (10:40)
[2024-03-17] MEDS ORDERED: ACETAMINOPHEN 325 MG/TAB PO PRN (10:40)
[2024-03-17] MEDS ORDERED: amLODIPine BESYLATE 5 MG/TAB PO SCH (12:00)
[2024-03-17] MEDS ORDERED: PANTOPRAZOLE SODIUM Sesquihydr 40 MG/TAB PO SCH (12:00)
[2024-03-17] MEDS ORDERED: LISINOPRIL 20 MG/TAB PO SCH (13:00)
[2024-03-17] MEDS ORDERED: hydroCHLOROthiazide 12.5 MG/CAP PO SCH (16:00)
[2024-03-17] MEDS ORDERED: METFORMIN HCL1000 MG PO (16:27)
[2024-03-17] MEDS ORDERED: DEXTROSE 250 ML IV PRN (16:45)
[2024-03-17] MEDS ORDERED: INSULIN LISPRO 100 UNITS/ML ML SC SCH (17:00)
[2024-03-17] MEDS ORDERED: ENOXAPARIN SODIUM 40 MG/0.4 ML SYR SC SCH (21:00)
[2024-03-17] MEDS ORDERED: ATORVASTATIN CALCIUM 40 MG/TAB PO SCH (21:00)
[2024-03-17] MEDS ORDERED: METOPROLOL TARTRATE 25 MG/TAB PO SCH (21:00)
[2024-03-18 03:27] VITALS: BP 130/85
[2024-03-18 03:55] VITALS: BP 130/85
[2024-03-18 05:10] LABS: BASO% 0.9 % (0-3); EOS% 5.2 % (0-8); HEMATOCRIT 46.5 % (39.0-50.0); HEMOGLOBIN 15.9 g/dl (14.0-18.0); IMMATURE GRANULOCYTES 0.3 % (0.0-5.0); LYMPH% 36.1 % (15-41); MEAN CELL VOLUME 91.2 fL CALC (80.0-100.0); MEAN CORPUSCULAR HGB 31.2 pG CALC (26.0-32.0); MEAN CORPUSCULAR HGB CONC 34.2 g/dL CAL (32.0-36.0); MONO% 7.7 % (2-13); NEUT# 3.23 thou/uL (1.82-7.42); NEUT% 49.8 % (42-76); RED BLOOD COUNT 5.1 mill/uL (4.70-6.10); RED CELL DISTRI WIDTH 13.5 % (11.5-15.5)
[2024-03-18 05:26] LABS: ALBUMIN 3.9 g/dL (3.2-5.0); BILIRUBIN, TOTAL 0.6 mg/dL (0.2-1.3); CHOLESTEROL HDL RATIO 6.3 (<4.4 (CALC)); MAGNESIUM 1.9 mg/dL (1.6-2.3); POTASSIUM 3.9 mmol/l (3.5-5.1); TOTAL PROTEIN 6.8 g/dL (6.3-8.2)
[2024-03-18] MEDS ORDERED: metFORMIN HYDROCHLORIDE 500 MG/TAB PO SCH (08:00)
[2024-03-18 08:21] VITALS: BP 130/85
[2024-03-18] MEDS ORDERED: METFORMIN HCL1000 MG PO (08:51)
[2024-03-18] MEDS ORDERED: HYDROCHLOROTH12.5 MG PO (08:58)
[2024-03-18] MEDS ORDERED: ADLT ASA LOW81 MG PO (08:58)
[2024-03-18] MEDS ORDERED: PANTOPRAZOLE SO40 M1 PO (08:58)
[2024-03-18] MEDS ORDERED: LISINOPRIL20 M1 PO (08:58)
[2024-03-18] MEDS ORDERED: AMLODIPINE BESYL5 MG PO (08:59)
[2024-03-18] MEDS ORDERED: LOPRESSOR25 MG PO (08:59)
[2024-03-18] MEDS ORDERED: ATORVASTATIN CA40 MG PO (08:59)
[2024-03-18] MEDS ORDERED: ASPIRIN EC 81 MG/TAB PO SCH (09:00)
[2024-03-18] MEDS ORDERED: NEURONTIN100 MG PO (11:23)
== END 2024-03-18 10:50 | disposition home or self-care (01) | DRG 313 ==
LOC: ED 07:36 → ED-I 10:15 → ED 10:29 → MS2 10:30
PROVIDERS: Family Medicine; Nurse Practitioner Family; ADMIT Internal Medicine; ATTEND Internal Medicine
DX: R07.89 Other chest pain (principal); I11.0 Hypertensive heart disease with heart failure; I50.9 Heart failure, unspecified; E11.51 Type 2 diabetes mellitus with diabetic peripheral angiopathy without gangrene; I25.10 Atherosclerotic heart disease of native coronary artery without angina pectoris; E11.40 Type 2 diabetes mellitus with diabetic neuropathy, unspecified; I45.10 Unspecified right bundle-branch block; E66.9 Obesity, unspecified; E78.5 Hyperlipidemia, unspecified; T50.916A Underdosing of multiple unspecified drugs, medicaments and biological substances, initial encounter; Z91.120 Patient's intentional underdosing of medication regimen due to financial hardship; Z95.1 Presence of aortocoronary bypass graft; Z79.84 Long term (current) use of oral hypoglycemic drugs; Z72.0 Tobacco use
CPT/HCPCS: G0378; J1650